=== PATIENT | female | born 1965 | race Caucasian/White ===

== ENCOUNTER 2021-10-24 08:34 | Observation (INO) | payer BC ==
[~2021-10-24] VITALS: Ht 157.5 cm; Wt 113.4 kg
[2021-10-24 09:49] LABS: HEMOGLOBIN 14.6 gm/dl (12.3-15.3); RED BLOOD COUNT 4.93 M/UL (4.00-5.10); WHITE BLOOD COUNT 9.4 K/UL (4.5-11.0)
[2021-10-24] MEDS ORDERED: XIIDRA OU (15:38)
[2021-10-24] MEDS ORDERED: METAXALONE800 MG PO (15:43)
[2021-10-24] MEDS ORDERED: NABUMETONE750 MG PO (15:44)
[2021-10-24] MEDS ORDERED: WELLBUTRIN SR150 MG PO (15:44)
[2021-10-24] MEDS ORDERED: PHENTERMINE H37.5 M1 PO (15:46)
[2021-10-24] MEDS ORDERED: LISINOPRIL-HCT1 EAC1 PO (15:46)
[2021-10-24] MEDS ORDERED: RELPAX40 MG PO (15:48)
[2021-10-24] MEDS ORDERED: ABILIFY2 MG PO (15:48)
[2021-10-24] MEDS ORDERED: FISH OIL 1,2001 EAC1 PO (15:49)
[2021-10-24] MEDS ORDERED: TRAZODONE HCL50 MG PO (15:49)
[2021-10-24] MEDS ORDERED: VITAMIN D325 MCG PO (15:50)
[2021-10-25 06:15] LABS: HEMOGLOBIN 13.9 gm/dl (12.3-15.3); RED BLOOD COUNT 4.78 M/UL (4.00-5.10); WHITE BLOOD COUNT 7.5 K/UL (4.5-11.0)
[2021-10-25 06:45] LABS: BUN/CREATININE RATIO 27 (0-10)
== END 2021-10-25 14:26 | disposition home or self-care (01) ==
LOC: ER1 08:34 → CDU 12:31 → MED SURG 4 14:38
PROVIDERS: Nurse Practitioner; Physician Assistant Medical; ADMIT Internal Medicine
DX: R55 Syncope and collapse (principal); I10 Essential (primary) hypertension; Z20.822 Contact with and (suspected) exposure to COVID-19; Z79.899 Other long term (current) drug therapy
CPT/HCPCS: ECHO; 0240U; 36415; 70450; 70496; 70498; 71045; 80048; 80053; 81001; 82550; 82553; 83735; 84439; 84443; 84484; 85025; 85027; 85610; 85730; 93005; 93306; 99285; G0378; Q9967